=== PATIENT | female | born 1985 ===

== ENCOUNTER 2016-07-04 06:45 | Inpatient (IN) | payer OTHER ==
[2016-07-04 07:05] VITALS: BMI 31.9
[2016-07-04] MEDS ORDERED: OXYTOCIN IN NS 334 ML IV PRN (08:07)
[2016-07-04] MEDS ORDERED: IV START KIT ONE (08:22)
[2016-07-04] MEDS ORDERED: OXYTOCIN 10 UNITS/ML VIAL ONE (08:22)
[2016-07-04] MEDS ORDERED: LIDOCAINE 1% (PRES FREE) 30 ML VIAL ONE (08:23)
[2016-07-04] MEDS ORDERED: LIDOCAINE Viscous 2% 15 ML UDCUP ONE (08:23)
[2016-07-04] MEDS ORDERED: PUMP TUBING ONE (08:23)
[2016-07-04] MEDS ORDERED: OXYTOCIN IN NS 500 ML IV ONE (08:23)
[2016-07-04] MEDS ORDERED: SODIUM CHLORIDE 0.9% FLUSH 30 ML ONE (08:23)
[2016-07-04] MEDS ORDERED: MINERAL OIL 25 ML BOT ONE (08:23)
--- NOTE | 2016-07-04 09:02 | PDOC36 ---
Provider Note Note: cc: Admission H&P HPI: 31 y.o. year old MAGDALENO 06/27/2016, by Last Menstrual Period at 41w0d who presents for induction of labor for post dates. REVIEW OF SYSTEMS GENERAL:~ No fever or headache EYES:~ No double or blurry vision. CARDIOVASCULAR:~ No chest pain. RESPIRATORY:~ No severe shortness of breath or cough. GASTROINTESTINAL:~ No nausea or vomiting or right upper quadrant pain.~ PSYCHIATRIC:~ No anxiety or depression. PROBLEMS Post Dates History of Hemorrhage 24 hours Anxiety Cervical Dysplasia OB HISTORY #: 1, Date: 08/05/04, Sex: Female, Weight: 3.5 kg (7 lb 11.5 oz), GA: 40w0d, Delivery: Vaginal, Spontaneous Delivery, Apgar1: None, Apgar5: None, Living: Yes , Comments: None #: 2, Date: 12/09/05, Sex: Male, Weight: 3.2 kg (7 lb 0.9 oz), GA: 40w0d, Delivery: Vaginal, Spontaneous Delivery, Apgar1: None, Apgar5: None, Living: Yes , Comments:~ 1 day after delivery had hemorrhage #: 3, Current [facility] Colposcopy in 2012 SOC HX Reports that she has never smoked. She has never used smokeless tobacco. She reports that she does not drink alcohol or use illicit drugs. ALL No Known Allergies MEDICATIONS Vitamins 1 tablet by mouth everyday PHYSICAL EXAMINATION VITAL SIGNS:~ AFVSS Estimated body mass index is 31.59 Total weight gain is 2.7 kg (5 lb 15.2 oz) FHT:~ Category I (140s) [place]:~ Contractions every 5-10 minutes SVE:~ 3/30/-2 Bishops score = 5 GENERAL:~ No distress CARDIOVASCULAR:~ Regular rate and rhythm, no murmur, JVD or pedal edema. RESPIRATORY:~ Clear to auscultation bilaterally, respiratory effort is nonlabored at rest. GASTROINTESTINAL:~ Gravid no fundal tenderness NEUROLOGIC:~ Deep tendon reflexes are 2+ in the knees.~ Cranial nerves II-XII are grossly intact. PSYCHIATRIC:~ Alert and oriented x3, judgement and memory is intact, mood is pleasant. LABS & STUDIES O+ Antibody- Rubella Immune Hep B- HIV- GC/Chlamydia- Trep- Hgb 12.5 GBS Negative ULTRASOUNDS 35 wk - c/w lmp. female. limited survey secondary to GA. normal AMILCAR. post grade 2 placenta, fundal. no previa ASSESSMENT 31 y.o. year old MAGDALENO 06/27/2016, by Last Menstrual Period at 41w0d here for induction of labor for post dates. PLAN Induction of Labor: Bishops score is 5 but patient is a G3, will give her some Pitocin this morning and see if we can get her into active labor. She said she only has to push a couple of times with her labors. Will recheck at lunch and AROM if possible. History of Hemorrhage at 24 hours : Monitor closely, keep for 48 hours. Cervical Dysplasia: Pap in 2013 was nml with no HR HPV. :~ Yes Control: Partner is in [place] Pediatrics:~ Trupti Arias MD MPH
[2016-07-04 09:12] LABS: HEMATOCRIT 39.7 % (37.0-47.0); HEMOGLOBIN 13.2 gm/l (12.0-16.0); MEAN CELL VOLUME 94.1 fl (81.0-99.0); MEAN CORPUSCULAR HEMOGLOBIN 31.3 pg (27.0-31.0); MEAN CORPUSCULAR HGB CONC 33.2 g/dl (33.0-37.0); RED CELL DISTRIBUTION WIDTH 14.4 % (11.5-14.5)
[2016-07-04] MEDS: LACTATED RINGERS 1,000 ML IV SCH ×4 (10:10→21:34)
[2016-07-04] MEDS: OXYTOCIN IN NS 500 ML IV PRN ×10 (10:11→23:28)
--- NOTE | 2016-07-04 12:41 | PDOC36 ---
Provider Note Note: SUBJECTIVE: Stable, painful contractions. SROM'd moderate meconium fluid. OBJECTIVE: VS: AFVSS FHT: 150s Cat I [place]: Contractions q2-3 min SVE: DNE ASSESSMENT: 31 yo at 41 weeks gestation here for IOL for postdates. PLAN: IOL: Now SROM'd with meconium fluid. Will have respiratory at delivery. Continue expectant management.
--- NOTE | 2016-07-04 20:24 | PDOC36 ---
Provider Note Note: SUBJECTIVE: Patient was on pitocin until 4:30 pm, she was not feeling the contractions at all but was rolf about 2-4 minutes. Her Nguyen score was 5 this AM. We have tried several maneuvers today to try and encourage her labor without much success. She did SROM around noon with moderate meconium noted. OBJECTIVE: VS: AFVSS FHT: 150s Cat I [place]: Uterine Irritability SVE: 07/16/-2 Nguyen Score 5 ASSESSMENT: 31 yo at 41 wks gestation here for IOL for postdates and sister with a demise at 42 weeks. PLAN: IOL for Post Dates: No significant change in her cervix this AM (2) Nguyen score is 5, SROM'd around noon. Pitocin dosed up to 9 units without much success. This was stopped at 4:30 pm and the patient was allowed to walk and eat. Will start low dose pitocin for 8-12 hrs to see if this helps ripen the cervix in conjunction with the SROM earlier today. Will monitor for fever and limit cervical checks. Abnormal Pap: DAVID I noted on colposcopy in , pt will need colpo .
[2016-07-05] MEDS: OXYTOCIN IN NS 500 ML IV PRN (00:19)
[2016-07-05] MEDS: LACTATED RINGERS 1,000 ML IV SCH ×5 (04:49→12:10)
[2016-07-05] MEDS ORDERED: FENTANYL 100 MCG/2 ML VIAL IV PRN (04:55)
[2016-07-05] MEDS ORDERED: ONDANSETRON 4 MG/2ML 2 ML VIAL IV PRN ×2 (04:56→06:15)
[2016-07-05] MEDS ORDERED: FENTANYL/ROPIVACAINE EPIDURAL 250 ML EP ONE (05:41)
[2016-07-05] MEDS ORDERED: EPIDURAL PUMP SET ONE (05:41)
[2016-07-05] MEDS ORDERED: ROPIVACAINE 0.5% 30 ML VIAL ONE (05:44)
[2016-07-05] MEDS ORDERED: EPIDURAL PROCEDURE TRAY ONE (05:44)
--- NOTE | 2016-07-05 05:47 | PDOC36 ---
Provider Note Note: SUBJECTIVE: Patient has been on low dose pitocin overnight. She is now having very painful contractions every 2-4 minutes and is requesting an epidural. OBJECTIVE: VS: AFVSS FHT: 150s Category II with variable decels [place]: Contractions every 2-4 min SVE: - ASSESSMENT: 31 yo at 41 1/7 wks here for IOL for postdates. Pt has a sister with a demise at 42 weeks. PLAN: IOL: Low dose pitocin overnight for cervical ripening, patient with cervical change this AM, no - and appears to be starting active labor. Pt requesting an epidural. Continue expectant management. DAVID I in 05/05: Needs pap.
[2016-07-05] MEDS ORDERED: NALBUPHINE HCL 20 MG/ML AMP IV PRN (06:15)
[2016-07-05] MEDS ORDERED: METOCLOPRAMIDE HCL 5 MG/ML 2ML VIAL IV PRN (06:15)
[2016-07-05] MEDS ORDERED: FENTANYL/ROPIVACAINE EPIDURAL 250 ML EP SCH (06:15)
[2016-07-05] MEDS ORDERED: SODIUM CHLORIDE 0.9% 500 ML IV PRN (06:15)
[2016-07-05] MEDS ORDERED: LACTATED RINGERS 500 ML IV PRN (06:15)
[2016-07-05] MEDS ORDERED: EPHEDRINE SULFATE 50 MG/ML 1ML VIAL IV PRN (06:15)
[2016-07-05] MEDS ORDERED: DIPHENHYDRAMINE HCL 50 MG/1 ML VIAL IV PRN (06:15)
[2016-07-05] MEDS ORDERED: NALOXONE HCL 0.4 MG/ML VIAL IV PRN (06:15)
--- NOTE | 2016-07-05 11:23 | PDOC36 ---
Provider Note Subject: s: comfortable w epidural. occasional pressure. o: avss toco: q 4 fht: 150s, some early's, cat I sve: 8//-2 a/p: cont post dates iol increase pitocin per protocol expt mgmt
[2016-07-05] MEDS ORDERED: LANOLIN 50 APPLIC/7G TUBE TP PRN (14:47)
[2016-07-05] MEDS ORDERED: DOCUSATE SODIUM 100 MG CAPSULE PO PRN (14:47)
[2016-07-05] MEDS ORDERED: OXYTOCIN IN NS 167 ML IV PRN (14:47)
[2016-07-05] MEDS ORDERED: GENTAMICIN SULFATE IV SCH (14:47)
[2016-07-05] MEDS ORDERED: CALCIUM CARBONATE 500 MG TAB.CHEW PO PRN (14:47)
[2016-07-05] MEDS ORDERED: BENZOCAINE/MENTHOL 60 APPLIC/BOT TP PRN (14:47)
[2016-07-05] MEDS ORDERED: LACTATED RINGERS 1,000 ML IV PRN (14:47)
[2016-07-05] MEDS ORDERED: SENNOSIDES 8.6 MG TABLET PO PRN (14:47)
[2016-07-05] MEDS ORDERED: MAGNESIUM HYDROXIDE 30 ML UDCUP PO PRN (14:47)
[2016-07-05] MEDS ORDERED: SODIUM CHLORIDE 0.9% IV SCH (14:47)
--- NOTE | 2016-07-05 15:02 | PCMDEL ---
Delivery Note - Labor 1st stage (hr/min):: 11hr 13min 2nd stage (hr/min):: 0hr 32min 3rd stage (hr/min):: 0hr 5min Total (hr/min):: 11hr 50min Pushed (hr/min):: 0hr 47min - Delivery Delivery (Date): 07/05/16 Delivery (Time): 13:45 Gender: Female Presentation: Cephalic Position: OA Umbilical Cord: 3 Vessel Delayed Cord Clamping:: 2-3 min 1 Minute Total: 9 5 Minute Total: 9 Placenta:: complete, intact, mec stained, foul smelling, purulent appear amnio fluid EBL:: 250 Perineum:: intact, 1st deg ML vag lac, good hemostasis w/o repair Suture:: n/a Anesthesia/Meds:: epidural Length ROM:: 25hr 45min Comments:: vigorous female over supported perineum, had terminal mec, and amniotic fluid noted purulent appearing and foul smelling. to mom and delayed cord clamping x 2-3 min. Active 3rd stage w IV pitocin. Placenta del completea and intact. Small lac had good hemostasis without repair. and mom bonding skin to skin.
[2016-07-05] MEDS: IBUPROFEN 800 MG TABLET PO PRN (15:08)
[2016-07-05] MEDS ORDERED: AMPICILLIN SODIUM 2 G VIAL ONE ×2 (15:40→21:29)
[2016-07-05] MEDS ORDERED: NS 0.9% (MINI-BAG PLUS) 100 ML IV ONE ×2 (15:41→21:30)
[2016-07-05] MEDS: AMPICILLIN SODIUM 2 G in NS 0.9% (MINI-BAG PLUS) 100 ML IV SCH ×2 (15:44→21:35)
[2016-07-05] MEDS ORDERED: GENTAMICIN SULFATE 320 MG in SODIUM CHLORIDE 0.9% 100 ML IV SCH (16:00)
[2016-07-05] MEDS ORDERED: GENTAMICIN SULFATE 800 MG/20 ML VIAL ONE (16:13)
[2016-07-05] MEDS ORDERED: PUMP TUBING ONE (16:15)
[2016-07-05] MEDS ORDERED: LIDOCAINE 1% (PRES FREE) 30 ML VIAL ONE (21:32)
[2016-07-06] MEDS ORDERED: AMPICILLIN SODIUM 2 G VIAL ONE ×2 (03:18→09:35)
[2016-07-06] MEDS ORDERED: NS 0.9% (MINI-BAG PLUS) 100 ML IV ONE ×2 (03:18→09:35)
[2016-07-06] MEDS: AMPICILLIN SODIUM 2 G in NS 0.9% (MINI-BAG PLUS) 100 ML IV SCH ×2 (03:25→09:40)
[2016-07-06 07:15] LABS: HEMATOCRIT 33.1 % (37.0-47.0); HEMOGLOBIN 11.1 gm/l (12.0-16.0)
[2016-07-06] MEDS: IBUPROFEN 800 MG TABLET PO PRN ×2 (09:30→19:32)
[2016-07-06] MEDS: LACTATED RINGERS 1,000 ML IV SCH (09:34)
[2016-07-06] MEDS ORDERED: PUMP TUBING ONE (09:40)
--- NOTE | 2016-07-06 10:31 | PDOC44 ---
- Subjective Day: 1 Patient doing well. Pain controlled with meds, ambulating without dizziness, tolerating PO. BF well. No fevers. Lochia minimal. Reports Flatus, Reports Pain Tolerable, Reports , Reports Lochia Light, Reports Tolerating Regular Diet, Denies Nausea, Denies Vomiting - Objective Temp Pulse Resp BP Pulse Ox 98.1 F 71 16 97/54 07/06/16 09:15 07/06/16 09:15 07/06/16 09:15 07/06/16 09:15 Lab Results 07/06/16 06:10 Hgb 11.1 L D Hct 33.1 L Current Medications Generic Name Dose Route Start Last Admin Trade Name Freq PRN Reason Stop Dose Admin Acetaminophen/Hydrocodone Bitart 1 - 2 tab 07/05/16 14:47 [place] 5/325 PO Q4H PRN Pain (Moderate) Benzocaine/Menthol 1 applic 07/05/16 14:47 Dermoplast TP PRN PRN Patient Comfort Calcium Carbonate/Glycine 500 - 1,000 mg 07/05/16 14:47 Tums PO BID PRN Indigestion Docusate Sodium 100 mg 07/05/16 14:47 07/06/16 09:30 Colace PO 100 mg DAILY PRN Administration Comfort Emollient Ointment 1 applic 07/05/16 14:47 [id number]-[id number] TP PRN PRN sore nipples Ampicillin Sodium 2 g/ NS 0.9% 100 mls @ 300 mls/hr 07/05/16 15:00 07/06/16 09: 40 (MINI-BAG PLUS) IV 07/06/16 14:30 300 mls/hr Q6H ALVARADO Administration Lactated Ringer's 1,000 mls @ 100 mls/hr 07/05/16 14:47 Lactated Ringers IV .Q10H PRN Titrate per clinical situation OXYTOCIN IN NS 167 mls @ 167 mls/hr 07/05/16 14:47 Oxytocin-Ns 30 Unit/500 Ml IV X1 PRN Bleeding/3rd stage labor Ibuprofen 800 mg 07/05/16 14:47 07/06/16 09:30 Motrin PO 800 mg Q6H PRN Administration Pain (Mild) Magnesium Hydroxide 30 ml 07/05/16 14:47 Milk Of Magnesia PO BEDTIME PRN Constipation Senna 17.2 mg 07/05/16 14:47 Senokot PO BEDTIME PRN Comfort Sodium Chloride 10 ml 07/05/16 14:47 07/06/16 10:20 Normal Saline 10ml Flush IV 10 ml PRN PRN Administration IV Flush Sodium Chloride 10 ml 07/05/16 17:00 07/06/16 09:31 Normal Saline 10ml Flush IV 10 ml Q8HR ALVARADO Administration - Physical Exam General: Afebrile, No Acute Distress Psych/Mental Status: Mood/Affect Appropriate, Bonding Well Neurological: Alert, Normal Speech Lungs: Clear to Auscultation Bilaterally, Normal Air Movement Cardiovascular: Regular Rate and Rhythm, Normal S1, Normal S2 Breast: Nipples Intact Fundus: Firm, Midline Extremities: Full ROM, No Edema, No Tenderness Skin: Normal Color, Warm, Dry, Intact, No Rash - Problems:Assessment/Plan (1) Chorioamnionitis, delivered, current hospitalization Status: AcuteAssessment/Plan: Patient on Abx x 24 hrs, afebrile (2) Post-dates , delivered, current hospitalization Status: Acute (3) (spontaneous vaginal delivery) Status: AcuteAssessment/Plan: BF support Routine PP care Anticipate d/c tomorrow Disposition: Stable, Anticipate DC Home Tomorrow
[2016-07-07] MEDS ORDERED: SERTRALINE HCL 50 MG TABLET PO SCH (09:15)
[2016-07-07] MEDS: IBUPROFEN 800 MG TABLET PO PRN ×2 (09:16→16:25)
[2016-07-07] MEDS: HYDROCODONE/ACETAMINOPHEN 5/325MG TABLET PO PRN ×2 (09:17→16:25)
--- NOTE | 2016-07-07 12:58 | PDOC39B ---
Hospital Course: ADMIT DATE: 07/04/16 DISCHARGE DATE: 07/07/16 ADMISSION DIAGNOSES: Induction of labor for postdates PROCEDURES: Normal Spontaneous Vaginal Delivery HISTORY OF PRESENT ILLNESS/HOSPITAL COURSE: 31 year old G3 T2 L2 at 41 weeks 1 days presented for induction of labor for postdates. She was placed on Pitocin, however, did not end up delivering until the following day on 07/05/16. Please refer to details of induction and delivery process in provider notes. She developed chorioamnionitis and was placed on 24 hours antibiotics . During those 24 hours, she remained afebrile. By day of discharge the patient is ambulating, eating, voiding, and passing flatus without difficulty. Pain is controlled and lochia is appropriate. She is . She did admit to daily panic attacks including 2 here during her hospitalization. She has had these for 10 yrs or so. Given length of this and increased risk for depression, I have placed her on Sertraline 50mg daily and send a note to her PCP for close f/u. - Physical Exam Vital Signs: Temp Pulse Resp BP Pulse Ox 98.1 F 59 16 100/56 07/07/16 01:25 07/07/16 01:25 07/07/16 01:25 07/07/16 01:25 General: Afebrile, No Acute Distress Neurological: Alert, Oriented x 4 Lungs: Clear to Auscultation Bilaterally Cardiovascular: Regular Rate and Rhythm Fundus: Firm, Midline Extremities: Full ROM, No Edema Skin: Normal Color, Warm, Dry, Intact, No Rash - Discharge Diagnosis (1) Chorioamnionitis, delivered, current hospitalization Status: AcuteAssessment/Plan: Patient s/p Abx x 24 hrs, remained afebrile throughout. (2) (spontaneous vaginal delivery) Status: AcuteAssessment/Plan: Nl exam and vitals. +BF Pt tells me that she has been having daily panic attacks and had a bad one last night, is asking me for help. She does not feel like getting out of bed and walking. Apparently she has been suffering from very frequent panic attacks over the past 10 years. She has brought this up to her previous provider who dismissed this and never put her on medication. She presented late to care and did discuss this with her current provider and she was seen by the counselor at [facility]. Given length of time of panic attacks and her being at high risk for depression, will start her on Zoloft now and advised close f/u at [facility] with OB provider and counselor. - Discharge Plan Condition: Good Disposition: Home Instruction Forms: Vaginal Discharge Instructions Prescriptions: Docusate Sodium [COLACE 100 MG CAPSULE (SHF)] 100 mg PO BID PRN #60 cap PRN Reason: Constipation Ibuprofen [Motrin] 800 mg PO TID PRN #30 tablet PRN Reason: Pain Follow-Up: Lois Alexis ARNP [Referring] - 07/10/16
[2016-07-07 17:05] VITALS: BP 128/74
== END 2016-07-07 16:47 | disposition home or self-care (01) | DRG 775 ==
LOC: FBCOUT 06:45 → FBC 06:45 → FBCOUT 07:49 → FBC 07:50
PROVIDERS: ADMIT Family Medicine; ATTEND Family Medicine
PROC: 3E033VJ Introduction of Other Hormone into Peripheral Vein, Percutaneous Approach (ICD-10-PCS; 2016-07-04)
PROC: 10E0XZZ Delivery of Products of Conception, External Approach (ICD-10-PCS; principal; 2016-07-05)
DX: O48.0 Post-term pregnancy (principal); O41.1230 Chorioamnionitis, third trimester, not applicable or unspecified; O77.0 Labor and delivery complicated by meconium in amniotic fluid; O70.0 First degree perineal laceration during delivery; Z3A.41 41 weeks gestation of pregnancy; F53 Mental and behavioral disorders associated with the puerperium, not elsewhere classified; Z37.0 Single live birth

== ENCOUNTER 2016-07-12 14:53 | Outpatient (CLI) | payer OTHER | END 2016-07-12 14:54 | disposition home or self-care (01) | LOC: BABIESSH 14:53 | PROVIDERS: ATTEND Family Medicine | DX: Z39.1 Encounter for care and examination of lactating mother (principal) ==

== ENCOUNTER 2016-07-19 14:40 | Outpatient (CLI) | payer OTHER | END 2016-07-19 14:41 | disposition home or self-care (01) | LOC: BABIESSH 14:40 | PROVIDERS: ATTEND Family Medicine | DX: Z39.1 Encounter for care and examination of lactating mother (principal) ==